=== PATIENT | female | born 1990 | race Caucasian/White ===

== ENCOUNTER 2018-06-13 11:58 | Emergency (ER) | payer SELFPAY ==
[2018-06-13 13:24] LABS: Urine Blood NEGATIVE (NEG); Urine Glucose NEGATIVE (NEG); Urine Protein NEGATIVE (NEG)
[2018-06-13 13:44] LABS: Absolute Lymphocytes (CBC) 2.2 K/uL (0.7-4.9); Absolute Monocytes 0.5 K/uL (0.1-1.3); Absolute Neutrophil 5.4 K/uL (1.8-8.0); Basophils % 0.9 % (0-1.3); Eosinophils % 2.3 % (0-4.4); Lymphocytes % 26.2 % (15.3-44.8); MCH 31.3 pg (27.0-35.0); MCV 89.2 fL (80-100); MPV 9.9 fL (7.6-11.3); Monocytes % 5.8 % (3.3-12.3); RBC Red Blood Cell Count 4.93 M/uL (3.86-4.86)
[2018-06-13 15:17] LABS: BUN Blood Urea Nitrogen 10 mg/dL (7-18); Bicarbonate 28 mmol/L (21-32); Glucose Level 87 mg/dL (74-106); HCG, Quantitative 8636 mIU/mL (1-3); Potassium 3.8 mmol/L (3.5-5.1); Sodium Level 137 mmol/L (136-145)
--- NOTE | 2018-06-13 16:07 | ER ---
Nurse's Notes [facility] Name: Darshana Chin Age: 28 yrs Sex: Female : 1990 Arrival Date: 06/13/2018 Time: 12:04 Bed 25 Private MD: None, None Diagnosis: Less than 8 weeks gestation of Presentation: 06/13 12:05 Presenting complaint: Patient states: i recently found out i was and have been tw2 having some pains and some bleeding, medium bleeding, started bleeding yesterday. Transition of care: patient was not received from another setting of care. Onset of symptoms was June 13, 2018. Risk Assessment: Do you want to hurt yourself or someone else? Patient reports no desire to harm self or others. Initial Sepsis Screen: Does the patient meet any 2 criteria? No. Patient's initial sepsis screen is negative. Does the patient have a suspected source of infection? No. Patient's initial sepsis screen is negative. Care prior to arrival: None. 12:05 Method Of Arrival: Ambulatory tw2 12:05 Acuity: HUSEYIN 3 tw2 Triage Assessment: 16:34 General: Behavior is calm, cooperative. 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 - Social history:: Smoking status: Patient uses tobacco products, "maybe about 6 a day". - Ebola Screening: : Patient denies travel to an Ebola-affected area in the 21 days before illness onset. Screenin:04 Abuse screen: Denies threats or abuse. Denies injuries from another. Nutritional aj1 screening: No deficits noted. Tuberculosis screening: No symptoms or risk factors identified. 16:33 Fall Risk None identified. aj1 Assessment: 13:05 Obstetrical Assessment: Patient reports vaginal bleeding. General: Appears in no aj1 apparent distress. comfortable. Pain: Denies pain. Neuro: Level of Consciousness is awake, alert, obeys commands. Cardiovascular: Patient's skin is warm and dry. Respiratory: Airway is patent Respiratory effort is even, unlabored, Respiratory pattern is regular, symmetrical. GI: No signs and/or symptoms were reported involving the gastrointestinal system. : Reports vaginal bleeding that is moderate flow. EENT: No signs and/or symptoms were reported regarding the EENT system. Derm: No signs and/or symptoms reported regarding the dermatologic system. Skin is pink, warm \\T\\ dry. normal. 14:00 Reassessment: Patient appears in no apparent distress at this time. No changes from aj1 previously documented assessment. Patient and/or family updated on plan of care and expected duration. Pain level reassessed. Patient is alert, oriented x 3, equal unlabored respirations, skin warm/dry/pink. 15:31 Reassessment: Patient appears in no apparent distress at this time. No changes from aj1 previously documented assessment. Patient and/or family updated on plan of care and expected duration. Pain level reassessed. Patient is alert, oriented x 3, equal unlabored respirations, skin warm/dry/pink. Patient taken to ultrasound via wheelchair. 16:32 Reassessment: Patient appears in no apparent distress at this time. No changes from aj1 previously documented assessment. Patient and/or family updated on plan of care and expected duration. Pain level reassessed. Patient is alert, oriented x 3, equal unlabored respirations, skin warm/dry/pink. Vital Signs: 12:06 BP 126 / 57; Pulse 99; Resp 17; Temp 98.2(TE); Pulse Ox 99% ; Pain 6/10; tw2 16:34 Pulse 89; Resp 18; Pulse Ox 100% on R/A; aj1 ED Course: 12:04 Patient arrived in ED. sb2 12:04 None, None is Private Physician. sb2 12:05 Mariana Cox FNP-C is [facility]. kb 12:05 Josh Kaplan MD is Attending Physician. kb 12:06 Triage completed. tw2 12:07 Arm band placed on. tw2 12:44 Katya Eisenberg, ALFA is Primary Nurse. aj1 13:31 Initial lab(s) drawn, by me, sent to lab. Urine collected:. Inserted saline lock: 20 aj1 gauge in left antecubital area, using aseptic technique. Blood collected. 15:04 Patient has correct armband on for positive identification. Bed in low position. Call aj1 light in reach. Side rails up X 1. 15:04 No provider procedures requiring assistance completed. aj1 16:33 IV discontinued, intact, bleeding controlled, No redness/swelling at site. Pressure aj1 dressing applied. Administered Medications: No medications were administered Outcome: 16:07 Discharge ordered by . kb 16:34 Discharged to home ambulatory. aj1 16:34 Condition: good 16:34 Discharge instructions given to patient, Instructed on discharge instructions, follow up and referral plans. Demonstrated understanding of instructions, follow-up care. 16:35 Patient left the ED. aj1 Signatures: Mariana Cox, ENDLESS BED DRUM SANDER-C ENDLESS BED DRUM SANDER-CkKatya Payton RN RN aj1 Layla Santos RN RN tw2 Renetta Bess2 Corrections: (The following items were deleted from the chart) 15: 15:04 General: Appears in no apparent distress. comfortable, aj1 aj 15: 15:04 Pain: Denies pain. aj1 aj : 15:04 Neuro: Level of Consciousness is awake, alert, obeys commands, aj1 aj 15: 15:04 Cardiovascular: Patient's skin is warm and dry. aj1 aj : 15:04 Respiratory: Airway is patent Respiratory effort is even, unlabored, Respiratory aj1 pattern is regular, symmetrical, aj1 : 15:04 GI: No signs and/or symptoms were reported involving the gastrointestinal system. aj1 aj 15:04 : Reports vaginal bleeding that is moderate flow, aj1 aj 15:04 EENT: No signs and/or symptoms were reported regarding the EENT system. aj1 aj1 : 15:04 Derm: No signs and/or symptoms reported regarding the dermatologic system. Skin aj1 is pink, warm \\T\\ dry. normal, aj1 15:04 Obstetrical Assessment: Patient reports vaginal bleeding. aj1 aj1
--- NOTE | 2018-06-13 16:07 | EDPHYS ---
Physician Documentation [facility] Name: Darshana Chin Age: 28 yrs Sex: Female : 1990 Arrival Date: 06/13/2018 Time: 12:04 Bed 25 Private MD: None, None ED Physician Josh Kaplan HPI: 06/13 13:57 This 28 yrs old Female presents to ER via Ambulatory with complaints of kb Vaginal Bleeding, + Preg <12wks. 13:57 The patient presents to the emergency department with abdominal pain, vaginal bleeding, kb that is light. course: care: none, Leakage of Fluid: none appreciated, Ultrasound: the patient has not had an ultrasound, Risk/complications: no obvious risks or complications are appreciated. Previous pregnancies: in previous pregnancies patient has had. Associated signs and symptoms: Pertinent positives: abdominal pain, vaginal bleeding, Pertinent negatives: chest pain, diarrhea, dysuria, fever, frequency, nausea, ruptured membranes, seizure, shortness of breath, vaginal discharge, vomiting. The patient has not experienced similar symptoms in the past. The patient has not recently seen a physician. 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 - Social history:: Smoking status: Patient uses tobacco products, "maybe about 6 a day". - Ebola Screening: : Patient denies travel to an Ebola-affected area in the 21 days before illness onset. ROS: 13:55 Constitutional: Negative for fever, chills, and weight loss, Cardiovascular: Negative kb for chest pain, palpitations, and edema, Respiratory: Negative for shortness of breath, cough, wheezing, and pleuritic chest pain, Back: Negative for injury and pain, MS/Extremity: Negative for injury and deformity, Skin: Negative for injury, rash, and discoloration, Neuro: Negative for headache, weakness, numbness, tingling, and seizure. 13:55 Abdomen/GI: Positive for abdominal pain, Negative for nausea, vomiting, and diarrhea, constipation, abdominal cramps, abdominal distension, anorexia. 13:55 : Positive for vaginal bleeding. Exam: 13:55 Constitutional: This is a well developed, well nourished patient who is awake, alert, kb and in no acute distress. Head/Face: Normocephalic, atraumatic. Chest/axilla: Normal chest wall appearance and motion. Nontender with no deformity. No lesions are appreciated. Cardiovascular: Regular rate and rhythm with a normal S1 and S2. No gallops, murmurs, or rubs. Normal PMI, no JVD. No pulse deficits. Respiratory: Lungs have equal breath sounds bilaterally, clear to auscultation and percussion. No rales, rhonchi or wheezes noted. No increased work of breathing, no retractions or nasal flaring. Abdomen/GI: Soft, non-tender, with normal bowel sounds. No distension or tympany. No guarding or rebound. No evidence of tenderness throughout. Back: No spinal tenderness. No costovertebral tenderness. Full range of motion. Skin: Warm, dry with normal turgor. Normal color with no rashes, no lesions, and no evidence of cellulitis. MS/ Extremity: Pulses equal, no cyanosis. Neurovascular intact. Full, normal range of motion. Neuro: Awake and alert, GCS 15, oriented to person, place, time, and situation. Cranial nerves II-XII grossly intact. Motor strength 5/5 in all extremities. Sensory grossly intact. Cerebellar exam normal. Normal gait. Vital Signs: 12:06 BP 126 / 57; Pulse 99; Resp 17; Temp 98.2(TE); Pulse Ox 99% ; Pain 6/10; tw2 16:34 Pulse 89; Resp 18; Pulse Ox 100% on R/A; aj1 MDM: 12:30 Patient medically screened. kb 13:55 Data reviewed: vital signs, nurses notes. Data interpreted: Pulse oximetry: on room air kb is 99 %. Interpretation: normal. 16:06 Counseling: I had a detailed discussion with the patient and/or guardian regarding: the kb historical points, exam findings, and any diagnostic results supporting the discharge/admit diagnosis, lab results, radiology results, the need for outpatient follow up, an OB/Gyne specialist, to return to the emergency department if symptoms worsen or persist or if there are any questions or concerns that arise at home. 06/13 12:31 Order name: Quantitative Hcg kb 06/13 12:31 Order name: Abo/rh Typing kb 06/13 12:31 Order name: Basic Metabolic Panel kb 06/13 12:31 Order name: CBC with Diff kb 06/13 12:57 Order name: Urine Dipstick--Ancillary (enter results) lt1 06/13 13:11 Order name: Urine --Ancillary (enter results) lt1 06/13 13:25 Order name: Urine Dipstick-Ancillary; Complete Time: 13:32 EDMS 06/13 13:26 Order name: Urine --Ancillary; Complete Time: 13:32 EDMS 06/13 13:45 Order name: CBC with Automated Diff; Complete Time: 13:45 EDMS 06/13 14:22 Order name: ABO/RH typing; Complete Time: 14:22 EDMS 06/13 14:31 Order name: ABO/RH no charge; Complete Time: 14:34 EDMS 06/13 15:18 Order name: Basic Metabolic Panel; Complete Time: 15:18 EDMS 06/13 15:18 Order name: HCG, Quantitative; Complete Time: 15:18 EDMS 06/13 15:18 Order name: US Transvaginal Ob kb 06/13 12:31 Order name: Urine Test (obtain specimen); Complete Time: 13:30 kb 06/13 12:31 Order name: IV Saline Lock; Complete Time: 13:30 kb 06/13 12:31 Order name: Labs collected and sent; Complete Time: 13:30 kb 06/13 12:31 Order name: NPO; Complete Time: 13:30 kb 06/13 12:31 Order name: Urine Dipstick-Ancillary (obtain specimen); Complete Time: 13:30 kb Administered Medications: No medications were administered Disposition: 18:36 Co-signature as Attending Physician, Josh Kaplan MD. rn Disposition: 06/13/18 16:07 Discharged to Home. Impression: Less than 8 weeks gestation of . - Condition is Stable. - Discharge Instructions: First Trimester of , [id number]. - Medication Reconciliation Form, Thank You Letter, Antibiotic Education, Prescription Opioid Use form. - Follow up: Emergency Department; When: As needed; Reason: Worsening of condition. Follow up: Private Physician; When: 2 - 3 days; Reason: Recheck today's complaints, Continuance of care, Re-evaluation by your physician. Signatures: Dispatcher [employer] Mariana Rock, IQRA SOSA-Katya Vergara RN RN aj1 Josh Kaplan MD MD rn Wise, Tara, RN RN tw2 Corrections: (The following items were deleted from the chart) 16:35 16:07 06/13/2018 16:07 Discharged to Home. Impression: Less than 8 weeks gestation of aj1 . Condition is Stable. Forms are Medication Reconciliation Form, Thank You Letter, Antibiotic Education, Prescription Opioid Use. Follow up: Emergency Department; When: As needed; Reason: Worsening of condition. Follow up: Private Physician; When: 2 - 3 days; Reason: Recheck today's complaints, Continuance of care, Re-evaluation by your physician. kb
--- NOTE | 2018-06-13 20:47 | RAD REPORT ---
EXAM DESCRIPTION: US - Transvaginal OB - 06/13/2018 3:55 pm CLINICAL HISTORY: with abdominal pain and vaginal bleeding COMPARISON: None. FINDINGS: The uterus 7 x 5 x 8 centimeters. A gestational sac is present within the endometrium. Wi thin this is a yolk sac. pole is not seen. Gestational sac measures 10 x 10 x 5 millimeters. Ovaries are normal in size and echotexture. No significant free fluid is seen. IMPRESSION: Intrauterine with an estimated gestational age 5 weeks 3 days SEAN 02/10/2019. pole was not visualized. It is recommended that the patient have a followup endovaginal sonogra m in 1 week for re-evaluation.
== END 2018-06-13 16:35 | disposition home or self-care (01) ==
LOC: ER 11:58
DX: O20.9 Hemorrhage in early pregnancy, unspecified (principal); O99.331 Smoking (tobacco) complicating pregnancy, first trimester; F17.200 Nicotine dependence, unspecified, uncomplicated; Z3A.01 Less than 8 weeks gestation of pregnancy
CPT/HCPCS: 36415; 76817; 80048; 81003; 81025; 84702; 85025; 86900; 86901; 99283

== ENCOUNTER 2021-11-15 10:10 | Emergency (ER) | payer OTHER, SELFPAY ==
--- OUTSIDE RECORDS SUMMARY | 2021-11-15 10:14 | XMS REPORT | Continuity of Care Document ---
:1990 Author Organization [facility] t Address [address] [place] [address] Care Team Providers Name Role Phone William SOSA Primary Care Physician William SOSA Attending Clinician DR HAYLEY Attending Clinician Unavailable DR HAYLEY Admitting Clinician Unavailable Problems Condition Condition Condition Status Onset Resolution Last Treating Co mments Source Name Details Category Date Date Treatment Clinician Date Palpitatio Palpitatio Disease Active N PI:183 ns ns 11-08 [id number] 00:00: 00 Hospital Hospital Disease Active NPI:1 83 discharge discharge 11-08 1318 781 follow-up follow-up 00:00: 00 Shortness Shortness Disease Active NPI :183 of breath of breath 08-06 1318 781 00:00: 00 Anxiety Anxiety Disease Active NPI:183 08-14 [id number] 00:00: 00 Obesity Obesity Disease Active NPI:183 (BMI (BMI 2- [id number] 30.0-34.9) 30.0-34.9) 00:00: 00 Financial Financial Disease Active NPI :183 difficulti difficulti 08-14 [id number] es es 00:00: 00 Tobacco Tobacco Disease Active NPI:183 use use 08-14 [id number] disorder disorder 00:00: 00 Allergies, Adverse Reactions, Alerts Allergy Allergy Status Severity Reaction(s) Onset Inactive Treating Comm ents Source Name Type Date Date Clinician Iodine Propensi Active 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 0-08 [id number] adverse 00:00: reaction 00 s Penicill Propensi Active Hives 2019-07 NPI:18 3 ins ty to 0-08 [id number] adverse 00:00: reaction 00 s Social History Social Habit Start Date Stop Date Quantity Comments Source History [facility] NPI:[id number] Alcohol Comment Exposure to 2021-10-29 2021-11-08 Not sure NPI:[id number] SARS-CoV-2 (event) 00:00:00 16:19:00 Alcohol intake 2021-10-28 2021-10-28 Current drinker NPI:1 [id number] 00:00:00 00:00:00 of alcohol (finding) Cigarettes smoked 2021-08-06 2021-08-06 NPI:985 [id number] current (pack per 00:00:00 00:00:00 day) - Reported Cigarette 2021-08-06 2021-08-06 pack-years 00:00:00 00:00:00 Tobacco use and 2021-08-06 2021-08-06 Never used NPI:[id number] exposure 00:00:00 00:00:00 History of tobacco 2020-12-08 Cigarette Smoker use 00:00:00 History [facility] 2020-08-14 2020-08-14 2 NPI:[id number] Alcohol Frequency 00:00:00 00:00:00 History [facility] 2020-08-14 2020-08-14 1 NPI:[id number] Alcohol Std Drinks 00:00:00 00:00:00 History [facility] 2020-08-14 2020-08-14 1 NPI:[id number] 81 Alcohol Binge 00:00:00 00:00:00 Sex [birth year] NPI:[id number] 00:00:00 00:00:00 Smoking Status Start Date Stop Date Source Former smoker 2021-08-06 00:00:00 2021-08-06 00:00:00 NPI:1831 [id number] Medications Ordered Filled Start Stop Current Ordering Indication Dosage Frequency Signature Comments Components Source Medication Medication Date Date Medication? Clinician (SIG) Name Name albuterol Yes [id number] 2{puff} Inhale 2 NPI:183 90 - Puffs [id number] mcg/actuati 00:00: every 6 on inhaler 00 (six) hours as needed for Wheezing or Shortness of Breath. escitalopra 2021- No [id number] 10mg Take 1 NPI:183 m oxalate 08-06 tablet by [id number] (LEXAPRO) 00:00: 04:59 mouth 10 mg 00 :00 daily for tablet 30 days. propranoloL No [id number] 10mg Take 1 NPI:183 10 mg 08-06 tablet by [id number] tablet 00:00: 04:59 mouth 00 :00 every 12 (twelve) hours as needed (anxiety) for up to 30 days. Vital Signs Vital Name Observation Time Observation Value Comments Source Systolic blood pressure 2021-11-08 21:33:00 109 mm[Hg] Diastolic blood 2021-11-08 21:33:00 69 mm[Hg] NPI:1 [id number] pressure Heart rate 2021-11-08 21:33:00 89 /min NPI:1831 [id number] Body height 2021-11-08 21:33:00 170.2 cm NPI:1831 [id number] Body weight 2021-11-08 21:33:00 93.441 kg NPI:1831 [id number] BMI 2021-11-08 21:33:00 32.26 kg/m2 NPI:1831 [id number] Oxygen saturation in 2021-11-08 21:33:00 99 /min Arterial blood by Pulse oximetry Procedures This patient has no known procedures. Encounters Start End Encounter Admission Attending Care Care Encounter Source Date/Time Date/Time Type Type Clinicians Facility Department ID 2021-11-08 2021-11-08 Office JAZMYN Thomas [id number] NPI:183 16:30:00 16:56:[facility] [id number] [place] [id number] SMILEY?BLEA [id number] [place] [address] MEDICAL OFFICE [facility]ING 2019-03-13 2019-03-13 Outpatient Raz [facility] WWACU [id number] NPI:170 07:02:00 12:00:00 WILLARD [id number] 2019-02-11 2019-02-12 Inpatient Raz [facility] OB [id number] NPI:170 12:40:00 15:59:00 WILLARD [id number] 2018-10-24 2018-10-24 Outpatient Raz [facility] RAD [id number] NPI:170 09:00:00 23:59:00 WILLARD [id number] Results Test Description Test Time Test Comments Results Result Comments Source BASIC METABOLIC PANEL *WW* 2019-03-13 08:34:00 Test Item Value Reference Range Interpretation Comme nts GLUCOSE (test code = 06D) 88 mg/dL 75-100 SODIUM (test code = 01A) 142 mmol/L 136-145 POTASSIUM (test code = 01B) 4.1 mmol/L 3.6-5.1 CHLORIDE (test code = 04A) 109 mmol/L 98-107 H CO2 (test code = 02A) 24 mmol/L 22-32 ANION GAP (test code = ANG) 13.1 mmol/L BUN (test code = 05D) 12 mg/dL 7-18 CREATININE (test code = 03E) 0.8 mg/dL 0.4-1.1 BUN/CREA (test code = BCR) 15 12-20 CALCIUM (test code = 09D) 8.8 mg/dL 8.3-9.5 CBC (INCLUDES AUTOMATED DIFFERENTIAL)*[id number] 07:56:00 Test Item Value Reference Range Interpretation Comments WBC (test code = WBC) 5.9 10\S\3/uL 4.5-11.0 RBC (test code = RBC) 5.05 10\S\6/uL 4.30-5.70 HGB (test code = HBG) 14.5 g/dL 12.0-15.5 HCT (test code = HCT) 43.4 % 35.0-44.0 MCV (test code = MCV) 85.9 fL 81.0-99.0 MCH (test code = MCH) 28.7 pg 27.0-31.0 MCHC (test code = MCHC) 33.4 g/dL 32.0-36.0 RDW (test code = RDW) 14.8 % 11.5-14.5 H PLT (test code = PLT) 239 10\S\3/uL 130-400 MPV (test code = MPV) 11.0 fL 9.4-12.4 NEUTROP # (test code = NE#) 3.1 10\S\3/uL 1.6-8.0 LYMPH # (test code = LY#) 2.3 10\S\3/uL 1.1-3.5 MONOCYTE # (test code = MO#) 0.3 10\S\3/uL 0.0-1.1 EOSINOPH # (test code = EO#) 0.2 10\S\3/uL 0.0-0.7 BASOPHIL # (test code = BA#) 0.1 10\S\3/uL 0.0-0.3 IG # (test code = IG#) 0.02 10\S\3/uL 0.00-0.06 NRBC # (test code = NRBC#) 0.00 10\S\3/uL 0.00-0.01 NEUTROPH % (test code = NE%) 52.0 % 35.0-73.0 LYMPH % (test code = LY%) 38.5 % 20.0-55.0 MONO % (test code = MO%) 4.8 % 2.5-10.0 EOSINOPH % (test code = EO%) 3.4 % 0.0-5.0 BASOPHIL % (test code = BA%) 1.0 % 0.0-2.0 IG % (test code = IG%) 0.3 % 0.0-0.8 NRBC% (test code = NRBC%) 0.0 % 0.0-0.2 MANDIFF (test code = WMDIFF) NO NO RBC MORPH (test code = NORMAL WRBCMOR) URINE MONOCLONAL *WW*2019-03-13 07:33:00 Test Item Value Reference Range Interpretation Comments PREG UR (test code = PGU) NEGATIVE NEGATIVE CBC (INCLUDES AUTOMATED DIFFERENTIAL)*[id number] 06:31:00 Test Item Value Reference Range Interpretation Comments WBC (test code = WBC) 8.6 10\S\3/uL 4.5-11.0 RBC (test code = RBC) 3.67 10\S\6/uL 4.30-5.70 L HGB (test code = HBG) 10.6 g/dL 12.0-15.5 L HCT (test code = HCT) 32.3 % 35.0-44.0 L MCV (test code = MCV) 88.0 fL 81.0-99.0 MCH (test code = MCH) 28.9 pg 27.0-31.0 MCHC (test code = MCHC) 32.8 g/dL 32.0-36.0 RDW (test code = RDW) 13.5 % 11.5-14.5 PLT (test code = PLT) 171 10\S\3/uL 130-400 MPV (test code = MPV) 11.3 fL 9.4-12.4 NEUTROP # (test code = NE#) 6.1 10\S\3/uL 1.6-8.0 LYMPH # (test code = LY#) 2.0 10\S\3/uL 1.1-3.5 MONOCYTE # (test code = MO#) 0.4 10\S\3/uL 0.0-1.1 EOSINOPH # (test code = EO#) 0.0 10\S\3/uL 0.0-0.7 BASOPHIL # (test code = BA#) 0.0 10\S\3/uL 0.0-0.3 IG # (test code = IG#) 0.05 10\S\3/uL 0.00-0.06 NRBC # (test code = NRBC#) 0.00 10\S\3/uL 0.00-0.01 NEUTROPH % (test code = NE%) 70.3 % 35.0-73.0 LYMPH % (test code = LY%) 23.5 % 20.0-55.0 MONO % (test code = MO%) 5.1 % 2.5-10.0 EOSINOPH % (test code = EO%) 0.3 % 0.0-5.0 BASOPHIL % (test code = BA%) 0.2 % 0.0-2.0 IG % (test code = IG%) 0.6 % 0.0-0.8 NRBC% (test code = NRBC%) 0.0 % 0.0-0.2 MANDIFF (test code = WMDIFF) NO NO RBC MORPH (test code = NORMAL WRBCMOR) HIV *WW*2019-02-11 21:18:00 Test Item Value Reference Range Interpretation Comments HIV-1,2 and p24 (test code = NON-REACTIVE NON-REACTIVE CHIV) SYPHILIS SCREENING WW2019-02-11 21:00:00 Test Item Value Reference Range Interpretation Comments T PALLIDUM AB (test NON-REACTIVE NON-REACTIVE code = SYPHINT) SYPHC (test code = RPR test has been SYPHC) updated to Treponemal Immunoassay. Interpretation of results is similar RUBELLA AB IGG WW2019-02-11 21:00:00 Test Item Value Reference Range Interpretation Comments RUB AB IGG INTERP (test code = IMMUNE NON-IMMUNE A RBABINT) HEPATITIS B SURFACE ANTIGEN *WW*2019-02-11 20:50:00 Test Item Value Reference Range Interpretation Comments HBSAG (test code = HBSAG) NON-REACTIVE NON-REACTIVE CBC (INCLUDES AUTOMATED DIFFERENTIAL)*[id number] 14:26:00 Test Item Value Reference Range Interpretation Comments WBC (test code = WBC) 10.2 10\S\3/uL 4.5-11.0 RBC (test code = RBC) 4.09 10\S\6/uL 4.30-5.70 L HGB (test code = HBG) 11.9 g/dL 12.0-15.5 L HCT (test code = HCT) 35.0 % 35.0-44.0 MCV (test code = MCV) 85.6 fL 81.0-99.0 MCH (test code = MCH) 29.1 pg 27.0-31.0 MCHC (test code = MCHC) 34.0 g/dL 32.0-36.0 RDW (test code = RDW) 13.5 % 11.5-14.5 PLT (test code = PLT) 196 10\S\3/uL 130-400 MPV (test code = MPV) 11.1 fL 9.4-12.4 NEUTROP # (test code = NE#) 7.5 10\S\3/uL 1.6-8.0 LYMPH # (test code = LY#) 2.1 10\S\3/uL 1.1-3.5 MONOCYTE # (test code = MO#) 0.4 10\S\3/uL 0.0-1.1 EOSINOPH # (test code = EO#) 0.0 10\S\3/uL 0.0-0.7 BASOPHIL # (test code = BA#) 0.0 10\S\3/uL 0.0-0.3 IG # (test code = IG#) 0.04 10\S\3/uL 0.00-0.06 NRBC # (test code = NRBC#) 0.00 10\S\3/uL 0.00-0.01 NEUTROPH % (test code = NE%) 74.1 % 35.0-73.0 H LYMPH % (test code = LY%) 21.0 % 20.0-55.0 MONO % (test code = MO%) 3.8 % 2.5-10.0 EOSINOPH % (test code = EO%) 0.3 % 0.0-5.0 BASOPHIL % (test code = BA%) 0.4 % 0.0-2.0 IG % (test code = IG%) 0.4 % 0.0-0.8 NRBC% (test code = NRBC%) 0.0 % 0.0-0.2 MANDIFF (test code = WMDIFF) NO NO RBC MORPH (test code = NORMAL WRBCMOR) URINALYSIS WITH MICRO *WW*2019-02-11 13:12:00 Test Item Value Reference Range Interpretation Comments COLOR (test code = COLU) YELLOW YELLOW CLARITY (test code = CLA) SLT HAZY CLEAR A GLUCOSE UR (test code = UA GLUCOSE) NEGATIVE NEGATIVE BILI UR (test code = BILE) NEGATIVE NEGATIVE KETONES UR (test code = LEELEE) NEGATIVE NEGATIVE SP GRAVITY (test code = SPGR) 1.025 1.005-1.030 PH UR (test code = PH) 6.0 4.5-8.0 PROTEIN UR (test code = PU) TRACE NEGATIVE A UROBIL UR (test code = UROQ) 1.0 EU/dL 0.2-1.0 NITRITE UR (test code = NITRITE) NEGATIVE NEGATIVE BLOOD UR (test code = UA BLOOD) NEGATIVE NEGATIVE LEUK ES UR (test code = LEUK) TRACE NEGATIVE A WBC UR (test code = UWBC) 2 /HPF 0-5 RBC UR (test code = URBC) 0 /HPF 0-2 EPITH UR (test code = UEPC) FEW /LPF FEW BACTERIA UR (test code = UBACT) FEW /HPF NONE A CAST UR (test code = CAST) /LPF NONE CRYSTAL UR (test code = CRYU) / LPF NONE MUCUS UR (test code = MUC) FEW / HPF NONE A AMORPH UR (test code = KALIA) / HPF NONE TRICH UR (test code = UTRICH) /HPF NONE YEAST UR (test code = UY) /HPF NONE SPERM UR (test code = USPERM) /HPF NONE U/S >14 WEEKS*WW*2018-10-24 09:58:37Location of dictation: B2OB Ultrasound CompleteCOMPARISON: NoneTECHNIQUE: Real-time sonography was performed transabdominally with the 4 MHztransducer.FINDINGS:There is a single living intrauterine fetus in cephalic presentation. Placentais anterior, Grade 1. There is no evidence of placental abruption nor placentaprevia. Cervix is closed, measuring 7.4 cm length. Amniotic fluid volume iswithin normal limits with LYNDON of 17.6cm. The single deepest pocket measures 5.9cm.ANATOMIC SURVEY:No gross abnormalities of the cranium, spine, mid face,4-chamberheart, stomach bubble, kidneys, bladder , cord insertion site and 3-vesselcord. heart rate: 158 BPMAverage sonographic age of the fetus is 24 weeks 1 day with SEAN of 02/12/19based on the following:Biparietal diameter: 5.7 cmHead circ umference: 22 cmAbdominal circumference: 20 cmFemur length: 4.6 cmFetal ratios are normal. Estimatedfetal weight: 727 grams. weight percentile: 66%No abnormality of the maternal adnexae.IMPRESSION: 1. Single living intrauterine fetus at 24 weeks 1 day sonographic age incephalic presentation.2. No anomalies identified.3. No evidence for placenta previa nor abruption. 4. Follow-up ultrasound in 4-6 weeks is recommended to assess growth andanatomy.
[2021-11-15 11:08] LABS: Absolute Lymphocytes (CBC) 1.5 K/uL (0.7-4.9); Hematocrit 37.9 % (36.0-45.0); Lymphocytes % 26.2 % (15.3-44.8); RBC Red Blood Cell Count 4.22 M/uL (3.86-4.86)
[2021-11-15 11:14] LABS: Protime INR 0.96
[2021-11-15 11:31] LABS: BUN Blood Urea Nitrogen 11 mg/dL (7-18); Bicarbonate 26 mmol/L (21-32); Glucose Level 93 mg/dL (74-106); Potassium 3.9 mmol/L (3.5-5.1); Sodium Level 139 mmol/L (136-145)
[2021-11-15 11:39] LABS: Troponin High Sensitivity < 3.0 pg/mL (<58.9)
[2021-11-15] MEDS ORDERED: ASPIRIN 81 MG CHEWABLE TABLET ONE (14:03)
--- NOTE | 2021-11-15 14:03 | RAD REPORT ---
EXAM DESCRIPTION: RAD - Chest Single View - 11/15/2021 1:54 pm CLINICAL HISTORY: CHEST PAIN Chest pain. COMPARISON: No comparisons FINDINGS: Portable technique limits examination quality. The lungs are grossly clear. The heart is normal in size. No displaced fractures. IMPRESSION: No acute intrathoracic process suspected.
[2021-11-15] MEDS ORDERED: NA CHLORIDE 0.9% 0 ML ONE (14:04)
--- NOTE | 2021-11-15 14:20 | EDPHYS ---
Physician Documentation [facility] Name: Darshana Chin Age: 31 yrs Sex: Female : 1990 Arrival Date: 11/15/2021 Time: 10:11 Bed External Waiting Private MD: Elif Du ED Physician Isidoro Allan HPI: 11/15 14:14 This 31 yrs old Female presents to ER via Ambulatory with complaints of Chest erin Tightness, finger tingling. 14:14 The patient or guardian reports chest pain that is located primarily in the substernal erin area. The pain does not radiate. Associated signs and symptoms: Pertinent positives: shortness of breath. The chest pain is described as aching. Duration: The patient or guardian reports a single episode, that is now resolved, The patient or guardian reports multiple episodes, with no pattern. Modifying factors: The symptoms are alleviated by nothing. the symptoms are aggravated by nothing. Severity of pain: At its worst the pain was mild in the emergency department the pain is unchanged. The patient has not experienced similar symptoms in the past. 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 - Social history:: Smoking status: Reported history of juuling and/or vaping. - Family history:: not pertinent. ROS: 14:14 Constitutional: Negative for fever, chills, and weight loss, Eyes: Negative for injury, erin pain, redness, and discharge, ENT: Negative for injury, pain, and discharge, Neck: Negative for injury, pain, and swelling, Abdomen/GI: Negative for abdominal pain, nausea, vomiting, diarrhea, and constipation, Back: Negative for injury and pain, : Negative for injury, bleeding, discharge, and swelling, MS/Extremity: Negative for injury and deformity, Skin: Negative for injury, rash, and discoloration, Neuro: Negative for headache, weakness, numbness, tingling, and seizure, Psych: Negative for depression, anxiety, suicide ideation, homicidal ideation, and hallucinations, Allergy/Immunology: Negative for hives, rash, and allergies, Endocrine: Negative for neck swelling, polydipsia, polyuria, polyphagia, and marked weight changes, Hematologic/Lymphatic: Negative for swollen nodes, abnormal bleeding, and unusual bruising. 14:14 Cardiovascular: Positive for chest pain, of the chest. 14:14 Respiratory: Positive for shortness of breath. Exam: 14:14 Constitutional: This is a well developed, well nourished patient who is awake, alert, erin and in no acute distress. Head/Face: Normocephalic, atraumatic. Eyes: Pupils equal round and reactive to light, extra-ocular motions intact. Lids and lashes normal. Conjunctiva and sclera are non-icteric and not injected. Cornea within normal limits. Periorbital areas with no swelling, redness, or edema. ENT: Nares patent. No nasal discharge, no septal abnormalities noted. Tympanic membranes are normal and external auditory canals are clear. Oropharynx with no redness, swelling, or masses, exudates, or evidence of obstruction, uvula midline. Mucous membranes moist. Neck: Trachea midline, no thyromegaly or masses palpated, and no cervical lymphadenopathy. Supple, full range of motion without nuchal rigidity, or vertebral point tenderness. No Meningismus. Chest/axilla: Normal chest wall appearance and motion. Nontender with no deformity. No lesions are appreciated. Cardiovascular: Regular rate and rhythm with a normal S1 and S2. No gallops, murmurs, or rubs. Normal PMI, no JVD. No pulse deficits. Respiratory: Lungs have equal breath sounds bilaterally, clear to auscultation and percussion. No rales, rhonchi or wheezes noted. No increased work of breathing, no retractions or nasal flaring. Abdomen/GI: Soft, non-tender, with normal bowel sounds. No distension or tympany. No guarding or rebound. No evidence of tenderness throughout. Back: No spinal tenderness. No costovertebral tenderness. Full range of motion. Skin: Warm, dry with normal turgor. Normal color with no rashes, no lesions, and no evidence of cellulitis. MS/ Extremity: Pulses equal, no cyanosis. Neurovascular intact. Full, normal range of motion. Neuro: Awake and alert, GCS 15, oriented to person, place, time, and situation. Cranial nerves II-XII grossly intact. Motor strength 5/5 in all extremities. Sensory grossly intact. Cerebellar exam normal. Normal gait. Psych: Awake, alert, with orientation to person, place and time. Behavior, mood, and affect are within normal limits. 14:14 Musculoskeletal/extremity: ROM: no acute changes, intact in all extremities, Circulation is intact in all extremities. Sensation intact. Compartment Syndrome exam of affected extremity: is normal. no pain, no numbness, no tingling, no sensation deficit, no palor, no weak pulses, DVT Exam: No signs of deep vein thrombosis. no pain, no swelling, no tenderness, negative Homans' sign noted on exam, no appreciated bluish discoloration, no erythema, no increased warmth. Vital Signs: 10:39 BP 125 / 86; Pulse 76; Resp 16; Temp 98.7; Pulse Ox 98% on R/A; iw MDM: 11:54 Patient medically screened. erin 14:18 Differential diagnosis: abnormal EKG, acute pericarditis, anxiety, chest wall pain, erin Cholelithiasis pancreatitis, peptic ulcer disease, pneumonia, pneumothorax, pulmonary embolus, stable angina, unstable angina. HEART Score: History: Slightly Suspicious (0), ECG: Normal (0), Age: < or = 45 years (0), Risk Factors: No Risk Factors Known (0), Troponin: < or = 1 x Normal Limit (0). The patient's deep vein thrombosis risk score was calculated as follows: Total Score: 0. This patient was found to be at low risk for a deep vein thrombosis by using the Well's assessment criteria. The patient's pulmonary embolism risk score was calculated as follows: Total Score: 0-2 points. This patient was found to be at low risk for a pulmonary embolism by using the Well's assessment criteria. CHARIS Risk Score: TOTAL SCORE = 0. Data reviewed: vital signs, nurses notes, lab test result(s), EKG, radiologic studies, plain films. Data interpreted: media monitor: rate is 76 beats/min, rhythm is regular, Pulse oximetry: on room air is 98 %. Test interpretation: by ED physician or midlevel provider: ECG, plain radiologic studies. Counseling: I had a detailed discussion with the patient and/or guardian regarding: the historical points, exam findings, and any diagnostic results supporting the discharge/admit diagnosis, lab results, radiology results, the need for outpatient follow up, for definitive care, a plant guard, a family practitioner. 11/15 10:43 Order name: Basic Metabolic Panel; Complete Time: 13:14 iw 11/15 10:43 Order name: CBC with Diff; Complete Time: 13:14 iw 11/15 10:43 Order name: PT-INR; Complete Time: 13:14 iw 11/15 10:43 Order name: Troponin HS; Complete Time: 13:14 iw 11/15 10:43 Order name: XRAY Chest (1 view); Complete Time: 14:13 iw 11/15 13:14 Order name: D-Dimer; Complete Time: 14:13 [facility] 11/15 10:43 Order name: EKG; Complete Time: 10:43 iw 11/15 10:43 Order name: Cardiac monitoring; Complete Time: 13:49 iw 11/15 10:43 Order name: EKG - Nurse/Tech; Complete Time: 11:18 iw 11/15 10:43 Order name: IV Saline Lock; Complete Time: 13:11 iw 11/15 10:43 Order name: Labs collected and sent; Complete Time: 13:11 iw 11/15 10:43 Order name: O2 Per Protocol; Complete Time: 13:49 11/15 10:43 Order name: O2 Sat Monitoring; Complete Time: 13:49 iw 11/15 11:55 Order name: Urine Dipstick-Ancillary (obtain specimen) [facility] 11/15 11:55 Order name: Urine Test (obtain specimen) erin Administered Medications: 14:01 Not Given (Patient Refused): Aspirin Chewable Tablet 81 mg PO once iw 14:01 Not Given (Patient Refused): NS 0.9% 500 ml IV at bolus once iw Disposition Summary: 11/15/21 14:20 Discharge Ordered Location: Home erin Problem: new erin Symptoms: have improved erin Condition: Stable erin Diagnosis - Chest pain, unspecified erin - Dyspnea erin Followup: erin - With: Elif Du - When: 2 - 3 days - Reason: Recheck today's complaints, Continuance of care, Re-evaluation by your physician Followup: erin - With: Shaheen Edmonds MD - When: 2 - 3 days - Reason: Continuance of care, Re-evaluation by your physician Discharge Instructions: - Discharge Summary Sheet erin - Nonspecific Chest Pain, Adult erin - Chest Wall Pain erin - Nonspecific Chest Pain, Pediatric erin - Chest Wall Pain, Hegr-qv-Vltc erin - Nonspecific Chest Pain, Adult, Wjqd-oy-Crig erin - Aspirin and Your Heart erin Forms: - Medication Reconciliation Form erin - Thank You Letter erin - Antibiotic Education erin - Prescription Opioid Use erin Signatures: Dispatcher [employer] EDIsidoro Haro MD MD cha Williams, Irene RN RN iw Corrections: (The following items were deleted from the chart) 10:40 10:40 PMHx: None; iw iw
--- NOTE | 2021-11-15 14:20 | ER ---
Nurse's Notes [facility] Name: Darshana Chin Age: 31 yrs Sex: Female : 1990 Arrival Date: 11/15/2021 Time: 10:11 Bed External Waiting Private MD: Elif Du Diagnosis: Chest pain, unspecified;Dyspnea Presentation: 11/15 10:39 Chief complaint: Patient states: has a tightness in her chest, and left fingers are iw tingly , going on for over a month, worse today. Coronavirus screen: At this time, the client does not indicate any symptoms associated with coronavirus-19. Ebola Screen: Patient negative for fever greater than or equal to 101.5 degrees Fahrenheit, and additional compatible Ebola Virus Disease symptoms Patient denies exposure to infectious person. Patient denies travel to an Ebola-affected area in the 21 days before illness onset. No symptoms or risks identified at this time. Initial Sepsis Screen: Does the patient meet any 2 criteria? No. Patient's initial sepsis screen is negative. Does the patient have a suspected source of infection? No. Patient's initial sepsis screen is negative. Risk Assessment: Do you want to hurt yourself or someone else? Patient reports no desire to harm self or others. Onset of symptoms was October 2021. 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 - Social history:: Smoking status: Reported history of juuling and/or vaping. - Family history:: not pertinent. Screenin:06 Abuse screen: Denies threats or abuse. Denies injuries from another. Nutritional iw screening: No deficits noted. Tuberculosis screening: No symptoms or risk factors identified. Fall Risk None identified. Assessment: 12:05 General: Appears in no apparent distress. Behavior is calm, cooperative. Pain: iw Complains of pain in chest Pain does not radiate. Pain began one month ago. Neuro: Level of Consciousness is awake, alert, obeys commands, Moves all extremities. Cardiovascular: Patient's skin is warm and dry. Respiratory: Respiratory effort is even, unlabored, Respiratory pattern is regular. Musculoskeletal: Range of motion: intact in all extremities. Vital Signs: 10:39 BP 125 / 86; Pulse 76; Resp 16; Temp 98.7; Pulse Ox 98% on R/A; iw ED Course: 10:11 Patient arrived in ED. am2 10:11 Elif Du is Private Physician. am2 10:40 Triage completed. iw 10:40 Arm band placed on. iw 11:18 EKG done, by ED staff, reviewed by Isidoro Allan MD. [facility] 11:54 Isidoro Allan MD is Attending Physician. [facility] 12:05 Pam Taylor, RN is Primary Nurse. iw 13:56 XRAY Chest (1 view) In Process Unspecified. [facility] 14:19 Elif Du is Referral Physician. [facility] 14:19 Shaheen Edmonds MD is Referral Physician. erin Administered Medications: 14:01 Not Given (Patient Refused): Aspirin Chewable Tablet 81 mg PO once iw 14:01 Not Given (Patient Refused): NS 0.9% 500 ml IV at bolus once iw Outcome: 14:20 Discharge ordered by . erin 14:48 Patient left the ED. iw Signatures: Dispatcher [employer] Isidoro Avina MD MD cha Williams, Irene, RN RN Alfreda Banegas [facility] Tammi Daily am Corrections: (The following items were deleted from the chart) 10:40 10:40 PMHx: None; iw iw
[2021-11-15 15:37] VITALS: BP 125/86; TEMP 98.7; O2SAT 98
--- NOTE | 2021-11-16 10:21 | EKG ---
Test Date: 2021-11-15 Test Time: 11:01:14 Assistant Sales Director: BIN MEASUREMENT RESULTS: Intervals: Rate: 68 GA: 154 QRSD: 84 QT: 402 QTc: 427 [place]: P: 34 GA: 154 QRS: 67 T: 64 INTERPRETIVE STATEMENTS: Normal sinus rhythm with sinus arrhythmia Normal ECG No previous ECG available for comparison Electronically Signed On 11-16-21 10:17:44 CDT by Shaheen Edmonds
== END 2021-11-15 14:48 | disposition home or self-care (01) ==
LOC: ER 10:10
DX: R07.9 Chest pain, unspecified (principal); R06.00 Dyspnea, unspecified; Z88.0 Allergy status to penicillin; Z91.048 Other nonmedicinal substance allergy status
CPT/HCPCS: 36415; 71045; 80048; 84484; 85025; 85379; 85610; 93005; 99283; J7050